=== PATIENT | female | born 1980 | race Two or more races ===

== ENCOUNTER 2018-03-06 16:23 | Inpatient (IN) | payer MEDICAID ==
[~2018-03-06] VITALS: Ht 152.4 cm; Wt 72.6 kg
[2018-03-06 17:13] VITALS: BP 116/61
[2018-03-06] MEDS ORDERED: Lidocaine 2% Visc 15ml soln ORAL ONE (17:30)
--- NOTE | 2018-03-06 17:36 | Emergency Room Report ---
History of Present Illness General Chief Complaint: Female Urogenital Problems Source: Patient Present Illness HPI 37-year-old female patient presents to ER complaining of vaginal bleeding 3 weeks. Patient reports that she was seen by her primary care doctor who then referred her to [facility]. Patient reports that at exam on with [facility] and provider there said they would not able to perform a pelvic exam due to heavy bleeding. Was instructed to return to clinic next Thursday when credentialing specialist was going to be in the clinic and can perform the exam himself. Patient reports she was placed on iron supplementation tablets at that time. Patient denies pain with urination, hematuria. Patient reports passage of clots. Patient reports that she goes through 8-10 pads per day. Patient reports "some days are worse than others", some days no bleeding at all. Patient reports feeling lightheadedness. Patient denies syncope. Patient denies fever, chest pain, shortness of breath. Patient reports some suprapubic tenderness. Patient also complains of blister in throat. reports blister appeared after chewing ice and swallowing, thinks that caused the injury. Patient denies pain with eating. Patient reports no vomiting, diarrhea, headache, vision loss, tooth pain. . Denies currently, Reports no recent sexual activity for the past few months. Reports use of contraceptives due to bleeding. Allergies: Coded Allergies: No Known Allergies (Unverified , 03/06/18) Patient History Past Medical History: see triage record Reviewed Nursing Documentation: PMH: Agreed; PSxH: Agreed Nursing Documentation-PMH Past Medical History: No Stated History Review of Systems All Other Systems: negative except mentioned in HPI Physical Exam Vital Signs Date Time Temp Pulse Resp B/P (MAP) Pulse Ox O2 Delivery O2 Flow Rate FiO2 03/06/18 16:43 98.2 76 12 112/63 100 Room Air 98.2 Sp02 EP Interpretation: reviewed, normal General Appearance: well appearing, no apparent distress, alert, GCS 15, non- toxic Head: normocephalic, atraumatic ENT: hearing grossly normal, normal pharynx, no angioedema, normal voice, TMs + canals normal, uvula midline, moist mucus membranes, other - tight tonsil: white exudate, no erythema, no uvular deviation, no trismus, no drooling Neck: full range of motion Respiratory: lungs clear, normal breath sounds, no rhonchi, no respiratory distress, no accessory muscle use, no wheezing, speaking full sentences Gastrointestinal: non tender, soft, no mass, non-distended, no guarding, no rebound Genitourinary: no CVA tenderness Musculoskeletal: back normal, digits/nails normal, gait/station normal, normal range of motion, non-tender Neurologic: alert, oriented x3, responsive, motor strength/tone normal, sensory intact Psychiatric: mood/affect normal Skin: no rash Lymphatic: no adenopathy Medical Decision Making PA Attestation Dr. Bates is my supervising Physician whom patient management has been discussed with. Diagnostic Impression: Primary Impression: Abnormal uterine bleeding Additional Impressions: Urinary tract infection Anemia ER Course Pt presents to ED c/o vaginal bleeding. DDX considered but are not limited to , ectopic, UTI, septic . DDX considered but are not limited to pharyngitis, laryngitis, URI, peritonsillar abscess, tonsillitis Low suspicion for peritonsillar abscess, no neck stiffness, no hot potato voice , no stridor. Moist mucous membranes, no pallor. VITAL SIGNS are WNL, patient is afebrile Ordered CBC, CMP, Type and Screen, UA, UCG, bHCG, IV NS, PT, PTT and pelvic US. ER COURSE: Patient resting comfortably, in no acute distress, nontoxic appearing. Patient reports pain symptoms resolved since onset. Provided with viscous lidocaine. CBC HgB 7.6, microcytic anemia, will admit patient, will order packed RBCs for blood transfusion. Informed patient of possible consultations. Signed consent received from patient for procedure. CMP unremarkable UA results show 3+ leukocyte esterase, WBC's, will treat for UTI with abx, provide first dose of Keflex in ER. Urine negative. BetaHCG 1, unlikely. Blood type A positive. PT, PTT, INR WNL Results discussed with patient. Consult with Dr. Bates, agrees with treatment and plan. Pelvic US, per US tech, shows Nabothian cyst and pelvic cyst, no free fluid. Informed patient to followup at scheduled appointment. F/u at scheduled appointment. patient reports understanding and agreement. For lesion on throat, informed patient bacterial infection unlikely, possible viral cause of symptoms. Will provide viscous lidocaine for pain symptoms. Salt water gargles for resolution of symptoms. Informed patient to take Tylenol only for pain symptoms, do not take Motrin/ Ibuprofen. Followup with primary care provider. Informed patient symptoms of lightheadedness related to anemia. Informed patient that she would be admitted for further treatment and evaluation. Consult with Dr. Bates. Patient will be admitted to Dr. Noe. Patient being admitted for vaginal bleeding, anemia. Labs Test 03/06/18 17:20 03/06/18 17:30 White Blood Count 14.3 K/UL (4.8-10.8) Red Blood Count 2.97 M/UL (4.20-5.40) Hemoglobin 7.6 G/DL (12.0-16.0) Hematocrit 23.5 % (37.0-47.0) Mean Corpuscular Volume 79 FL (80-99) Mean Corpuscular Hemoglobin 25.5 PG (27.0-31.0) Mean Corpuscular Hemoglobin Concent 32.3 G/DL (32.0-36.0) Red Cell Distribution Width 13.4 % (11.6-14.8) Platelet Count 350 K/UL (150-450) Mean Platelet Volume 6.7 FL (6.5-10.1) Neutrophils (%) (Auto) % (45.0-75.0) Lymphocytes (%) (Auto) % (20.0-45.0) Monocytes (%) (Auto) % (1.0-10.0) Eosinophils (%) (Auto) % (0.0-3.0) Basophils (%) (Auto) % (0.0-2.0) Differential Total Cells Counted 100 Neutrophils % (Manual) 78 % (45-75) Lymphocytes % (Manual) 19 % (20-45) Monocytes % (Manual) 3 % (1-10) Eosinophils % (Manual) 0 % (0-3) Basophils % (Manual) 0 % (0-2) Band Neutrophils 0 % (0-8) Platelet Estimate Adequate Platelet Morphology Normal Hypochromasia Occasional Microcytosis 1+ Urine Color Pale yellow Urine Appearance Cloudy Urine pH 6 (4.5-8.0) Urine Specific [place] 1.010 (1.005-1.035) Urine Protein 2+ (NEGATIVE) Urine Glucose (UA) Negative (NEGATIVE) Urine Ketones Negative (NEGATIVE) Urine Occult Blood 5+ (NEGATIVE) Urine Nitrite Negative (NEGATIVE) Urine Bilirubin Negative (NEGATIVE) Urine Urobilinogen Normal MG/DL (0.0-1.0) Urine Leukocyte Esterase 3+ (NEGATIVE) Urine RBC Tntc /HPF (0 - 2) Urine WBC 15-20 /HPF (0 - 2) Urine Squamous Epithelial Cells Moderate /LPF (NONE/OCC) Urine Bacteria Moderate /HPF (NONE) Urine HCG, Qualitative Negative (NEGATIVE) Sodium Level 136 MMOL/L (136-145) Potassium Level 3.6 MMOL/L (3.5-5.1) Chloride Level 101 MMOL/L (98-107) Carbon Dioxide Level 27 MMOL/L (21-32) Anion Gap 8 mmol/L (5-15) Blood Urea Nitrogen 12 mg/dL (7-18) Creatinine 0.8 MG/DL (0.55-1.30) Estimat Glomerular Filtration Rate > 60 mL/min (>60) Glucose Level 128 MG/DL (74-106) Calcium Level 8.8 MG/DL (8.5-10.1) Total Bilirubin 0.2 MG/DL (0.2-1.0) Aspartate Amino Transf (AST/SGOT) 24 U/L (15-37) Alanine Aminotransferase (ALT/SGPT) 37 U/L (12-78) Alkaline Phosphatase 79 U/L (46-116) Total Protein 7.5 G/DL (6.4-8.2) Albumin 3.5 G/DL (3.4-5.0) Globulin 4.0 g/dL Albumin/Globulin Ratio 0.9 (1.0-2.7) Lipase 162 U/L (73-393) Human Chorionic Gonadotropin, Quant 1 mIU/mL (1-6) Prothrombin Time 9.3 SEC (9.30-11.50) Prothromb Time International Ratio 0.9 (0.9-1.1) Activated Partial Thromboplast Time 22 SEC (23-33) CT/MRI/US Diagnostic Results CT/MRI/US Diagnostic Results : Imaging Test Ordered: Pelvic US Impression [facility] No findings to suggest ovarian torsion. Uterus and endometrium are unremarkable. No adnexal masses or pelvic free fluid. Last Vital Signs Date Time Temp Pulse Resp B/P (MAP) Pulse Ox O2 Delivery O2 Flow Rate FiO2 03/06/18 17:13 98.1 75 12 116/61 100 Room Air 98.1 Disposition: ADMITTED INPATIENT Condition: Serious Referrals: [facility] ([facility]) Patient Instructions: Abnormal Uterine Bleeding, [id number] Additional Instructions: Followup with primary care provider in 3 -5 days. Take medications as directed. Patient questions asked and answered. ER precautions given, patient instructed to return to ER immediately for any new or worsening of symptoms. Artis Franks Mar 06, 2018 17:36
[2018-03-06 17:54] LABS: APPEARANCE,URINE CLOUDY; BILIRUBIN, URINE NEGATIVE (NEGATIVE); COLOR,URINE PALE YELLOW; GLUCOSE, URINE (UA) NEGATIVE (NEGATIVE); KETONES,URINE NEGATIVE (NEGATIVE); LEUKOCYTE ESTERASE ,URINE 3+ (NEGATIVE); NITRITE,URINE NEGATIVE (NEGATIVE); PH,URINE 6 (4.5-8.0); PROTEIN,URINE 2+ (NEGATIVE); UROBILINOGEN,URINE NORMAL MG/DL (0.0-1.0)
[2018-03-06 18:00] LABS: HEMATOCRIT 23.5 % (37.0-47.0); HEMOGLOBIN 7.6 G/DL (12.0-16.0); MEAN CORPUSCULAR VOLUME 79 FL (80-99); PLATELET COUNT 350 K/UL (150-450); RED BLOOD COUNT 2.97 M/UL (4.20-5.40); RED CELL DISTRIBUTION WIDTH 13.4 % (11.6-14.8); WHITE BLOOD COUNT 14.3 K/UL (4.8-10.8)
[2018-03-06 18:09] LABS: ANION GAP 8 mmol/L (5-15); BLOOD UREA NITROGEN 12 mg/dL (7-18); CALCIUM 8.8 MG/DL (8.5-10.1); CARBON DIOXIDE 27 MMOL/L (21-32); CHLORIDE 101 MMOL/L (98-107); CREATININE 0.8 MG/DL (0.55-1.30); POTASSIUM 3.6 MMOL/L (3.5-5.1); SODIUM 136 MMOL/L (136-145)
[2018-03-06 18:14] LABS: ALANINE AMINOTRANSFERASE 37 U/L (12-78); ALBUMIN 3.5 G/DL (3.4-5.0); ALBUMIN/GLOBULIN RATIO 0.9 (1.0-2.7); ALKALINE PHOSPHATASE 79 U/L (46-116); ASPARTATE AMINO TRANSFERASE 24 U/L (15-37); BILIRUBIN,TOTAL 0.2 MG/DL (0.2-1.0)
[2018-03-06 18:32] LABS: INR 0.9 (0.9-1.1)
[2018-03-06] MEDS ORDERED: MULTIVITAMINS1 EAC2 ORAL (19:05)
[2018-03-06] MEDS ORDERED: Cephalexin 500mg cap ORAL ONE (19:45)
[2018-03-06] MEDS ORDERED: Morphine Sulfate 4mg/ml Inj IVP PRN ×2 (22:15→22:30)
[2018-03-06] MEDS ORDERED: Zolpidem 5mg tab ORAL PRN (22:15)
[2018-03-06] MEDS ORDERED: Milk of Magnesia 30ml Ud ORAL PRN (22:15)
[2018-03-07] VITALS: BP 118/66
[2018-03-07 04:00] VITALS: BP 111/52
[2018-03-07 08:00] VITALS: BP 110/62
[2018-03-07] MEDS ORDERED: Tubing Blood Filter IV ONE (09:41)
[2018-03-07] MEDS ORDERED: NS 275ml ONE (09:41)
[2018-03-07 11:46] LABS: BASOPHILS % (AUTO) 0.8 % (0.0-2.0); EOSINOPHILS % (AUTO) 0.5 % (0.0-3.0); HEMATOCRIT 28.7 % (37.0-47.0); HEMOGLOBIN 9.7 G/DL (12.0-16.0); LYMPHOCYTES % (AUTO) 24.7 % (20.0-45.0); MEAN CORPUSCULAR VOLUME 83 FL (80-99); MONOCYTES % (AUTO) 7.1 % (1.0-10.0); NEUTROPHILS % (AUTO) 66.9 % (45.0-75.0); PLATELET COUNT 302 K/UL (150-450); RED BLOOD COUNT 3.45 M/UL (4.20-5.40); RED CELL DISTRIBUTION WIDTH 14.3 % (11.6-14.8); WHITE BLOOD COUNT 12.5 K/UL (4.8-10.8)
[2018-03-07 12:00] VITALS: BP 123/81
--- NOTE | 2018-03-07 12:22 | History & Physical ---
History and Physical History & Physicial Hp dictated # [id number] KAREY URIOSTEGUI Mar 07, 2018 12:22
[2018-03-07 12:34] LABS: INR 0.9 (0.9-1.1)
[2018-03-07 16:00] VITALS: BP 119/72
[2018-03-07 20:15] VITALS: BP 117/75
--- NOTE | 2018-03-07 23:09 | History and Physical Report ---
DATE OF ADMISSION: 03/06/2018 CHIEF COMPLAINT: Heavy vaginal bleeding and dizziness. HISTORY OF PRESENT ILLNESS: This is a 37-year-old female who developed heavy vaginal bleeding for the past three weeks. The patient saw her primary doctor, was referred to an [facility] L[facility] COMPRESSOR, however, there was warehouse administrative assistant in the office who could not perform a pelvic exam because of heavy bleeding. She was instructed to return to clinic the next Thursday when cross country/track and field coach was in the clinic, so he could perform exam himself. The patient was started on oral iron tablets but for the past 5 days she has been very dizzy, unable to take care of her daily activities, bleeding constantly, and being very weak so she finally came to the emergency room. She was found to have hemoglobin of 7.6 with hematocrit 23.5. In the emergency room, she got two units of packed red blood cells and the hemoglobin improved to 9.7 with hematocrit 28.7. She feels better now and she said that her bleeding has subsided. PAST MEDICAL HISTORY: She has had irregular vaginal bleeding before but not this heavy. SOCIAL HISTORY: She is , has 2 children and lives with the family. ALLERGIES: No known drug allergies. REVIEW OF SYSTEMS: As above. PHYSICAL EXAMINATION: GENERAL: The patient is a pleasant female, in no acute distress. VITAL SIGNS: Blood pressure is 110/62, pulse 94, temperature 98.3 degrees, and respirations 21. HEENT: Pale conjunctivae. Anicteric sclerae. NECK: Supple. LUNGS: Clear to auscultation. HEART: S1 and S2 without murmurs or rubs. ABDOMEN: Soft and nontender. EXTREMITIES: No cyanosis or edema. LABORATORY AND DIAGNOSTIC DATA: UA shows too numerous to count rbc's and 15-20 wbc's per high-power field. CBC shows a WBC of 12.5, hematocrit 28.7, hemoglobin 9.7, and platelets 302,000. Chemistry panel shows serum sodium 136, potassium 3.6, chloride 101, CO2 27, BUN 12, creatinine 0.8, and blood sugar is 128. Calcium is 8.8. Albumin is 3.8. ASSESSMENT: This is a 37-year-old female who was admitted with heavy vaginal bleeding, severe anemia causing significant volume depletion and dizziness. PLAN: The patient will be on IV normal saline. Her hematocrit and hemoglobin will be followed closely. Further transfusions will be given if necessary. The patient will be seen by [facility] L[facility] COMPRESS[facility] physician, Dr. Aiden Vázquez in the morning. Antoni Noe M.D. DR: ELISA JOB#: [id number] CC:
[2018-03-08 00:29] VITALS: BP 120/74
[2018-03-08 04:50] VITALS: BP 108/66
[2018-03-08 09:00] VITALS: BP 112/72
--- NOTE | 2018-03-08 10:18 | Diagnostic Imaging Report ---
Indication: Pain. Negative test documented in the electronic medical record on day of exam. Technique: Transabdominal and endovaginal pelvic ultrasound was performed. Findings: The uterus measures 10.1 x 5.2 x 5.1 cm. The endometrium measures approximately 9 mm in thickness. There are well-circumscribed anechoic nonvascular structures in the cervix most likely representing nabothian cysts. The right liver measures 4 x 4 0.2 x 2.5 cm. The left ovary measures 2.2 x 2.3 x 1.8 cm. Color and Doppler flow to bilateral ovaries is documented. Appreciable adnexal mass. No free pelvic fluid identified. IMPRESSION: No evidence to suggest ovarian torsion at this time. Color and Doppler flow noted to the bilateral ovaries. Probable nabothian cysts in the cervix. Uterus and endometrium are unremarkable. No appreciable adnexal mass or free pelvic fluid. This corresponds with the [facility] preliminary report.
--- NOTE | 2018-03-08 10:19 | General Progress Note ---
Assessment/Plan Problem List: (1) Anemia ICD Codes: D64.9 - Anemia, unspecified SNOMED: 601959129 (2) Abnormal uterine bleeding ICD Codes: N93.9 - Abnormal uterine and vaginal bleeding, unspecified SNOMED: 94926329006799, [id number] Assessment/Plan follow H/H Grades 9 Thru 12 Visiting Teacher consult repeat UA Subjective Allergies: Coded Allergies: No Known Allergies (Unverified , 03/06/18) Subjective feels ok no more bleed Objective Last 24 Hour Vital Signs Date Time Temp Pulse Resp B/P (MAP) Pulse Ox O2 Delivery O2 Flow Rate FiO2 03/08/18 09:00 98.8 77 18 112/72 98 Room Air 98.8 03/08/18 05:08 Room Air 03/08/18 04:50 98.5 75 18 108/66 98 98.5 03/08/18 00:52 Room Air 03/08/18 00:29 98.5 90 17 120/74 98 98.5 03/07/18 20:16 Room Air 03/07/18 20:15 98.7 94 17 117/75 99 98.7 03/07/18 16:00 98.2 83 18 119/72 99 Room Air 98.2 03/07/18 12:00 98.5 97 19 123/81 97 Room Air 98.5 Intake and Output 03/07/18 03/08/18 19:00 07:00 Intake Total 1400 ml 1460 ml Balance 1400 ml 1460 ml Intake Oral 500 ml 360 ml IV Total 900 ml 1100 ml # Voids 2 3 Laboratory Tests 03/07/18 10:50: White Blood Count 12.5H, Red Blood Count 3.45L, Hemoglobin 9.7L, Hematocrit 28.7L, Mean Corpuscular Volume 83, Mean Corpuscular Hemoglobin 28.2, Mean Corpuscular Hemoglobin Concent 34.0, Red Cell Distribution Width 14.3, Platelet Count 302, Mean Platelet Volume 7.2, Neutrophils (%) (Auto) 66.9, Lymphocytes (% ) (Auto) 24.7, Monocytes (%) (Auto) 7.1, Eosinophils (%) (Auto) 0.5, Basophils ( %) (Auto) 0.8 03/07/18 11:55: Prothrombin Time 9.4, Prothromb Time International Ratio 0.9, Activated Partial Thromboplast Time 23 Height (Feet): 5 Height (Inches): 0.00 Weight (Pounds): 160 Cardiovascular: normal rate Respiratory/Chest: lungs clear Edema: no edema noted KAREY Carlos Mar 08, 2018 10:19
[2018-03-08 12:00] VITALS: BP 110/68
[2018-03-08 13:06] LABS: BASOPHILS % (AUTO) 0.7 % (0.0-2.0); HEMATOCRIT 31.2 % (37.0-47.0); HEMOGLOBIN 10.6 G/DL (12.0-16.0); LYMPHOCYTES % (AUTO) 23.9 % (20.0-45.0); MEAN CORPUSCULAR VOLUME 83 FL (80-99); MONOCYTES % (AUTO) 6.4 % (1.0-10.0); NEUTROPHILS % (AUTO) 68.1 % (45.0-75.0); PLATELET COUNT 336 K/UL (150-450); RED BLOOD COUNT 3.73 M/UL (4.20-5.40); RED CELL DISTRIBUTION WIDTH 14.6 % (11.6-14.8); WHITE BLOOD COUNT 10.9 K/UL (4.8-10.8)
[2018-03-08 13:25] LABS: APPEARANCE,URINE CLEAR; BILIRUBIN, URINE NEGATIVE (NEGATIVE); COLOR,URINE PALE YELLOW; GLUCOSE, URINE (UA) NEGATIVE (NEGATIVE); KETONES,URINE NEGATIVE (NEGATIVE); LEUKOCYTE ESTERASE ,URINE 3+ (NEGATIVE); NITRITE,URINE NEGATIVE (NEGATIVE); PH,URINE 7 (4.5-8.0); PROTEIN,URINE 1+ (NEGATIVE); UROBILINOGEN,URINE NORMAL MG/DL (0.0-1.0)
--- NOTE | 2018-03-08 14:06 | Consultation ---
Consult Note Consult Note GYNECOLOGY CONSULT NOTE CC: Heavy vaginal bleeding HPI: Ms. Pitts is a 37yo who was admitted with anemia secondary to heavy vaginal bleeding. Patient reports that bleeding began approximately 3w ago , started as a period. Bleeding stopped after 1w, but a couple of days later bleeding recurred initially as spotting, and then as heavy flow with large amounts of watery blood and clots. She was soaking multiple pads at a time. She followed up with her PCP, who started iron treatment but then referred her to Gynecology who "wouldn't do an exam because she was bleeding". She presented to the ED with lightheadedness, dizziness, shortness of breath, and found to have H /H 7.62/3.5. She was given 2u pRBCs and a COMMUNICATIONS STATION MANAGER consult was requested. She currently reports only bleeding with wiping, and is no longer bleeding heavily. She has an appointment to f/u with [facility] this coming Thursday. PMH: Denies hx of HTN, DM, asthma, or thyroid dz PSH: section in 2009 MEDS: Iron, Women's daily vitamin ALLERGIES: NKDA OBHx: - 1999, C/S 2009 GYNHx: Last Pap 2y ago, no hx abnormal. 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 Maternal grandfather from Stage 4 CA of unknown origin (unknown to patient) VITALS: Tmax: 98.5, SBP 108-120 DBP 66-74, HR 75-96, RR 17-20, O2 98-99% RA EXAM: GEN: NAD NEURO: CN 2-12 intact grossly HEENT: OP clear, MMM CV: Regular rate PULM: Equal chest rise, no increased work of breathing ABD: Soft, NTND PELVIC: Deferred, pad without evidence of heavy bleeding EXT: No calf TTP MSK: FROM LABS: Test 03/06/18 17:20 03/06/18 17:30 03/07/18 10:50 03/07/18 11:55 White Blood Count 14.3 K/UL (4.8-10.8) 12.5 K/UL (4.8-10.8) Red Blood Count 2.97 M/UL (4.20-5.40) 3.45 M/UL (4.20-5.40) Hemoglobin 7.6 G/DL (12.0-16.0) 9.7 G/DL (12.0-16.0) Hematocrit 23.5 % (37.0-47.0) 28.7 % (37.0-47.0) Mean Corpuscular Volume 79 FL (80-99) 83 FL (80-99) Mean Corpuscular Hemoglobin 25.5 PG (27.0-31.0) 28.2 PG (27.0-31.0) Mean Corpuscular Hemoglobin Concent 32.3 G/DL (32.0-36.0) 34.0 G/DL (32.0-36.0) Red Cell Distribution Width 13.4 % (11.6-14.8) 14.3 % (11.6-14.8) Platelet Count 350 K/UL (150-450) 302 K/UL (150-450) Mean Platelet Volume 6.7 FL (6.5-10.1) 7.2 FL (6.5-10.1) Neutrophils (%) (Auto) % (45.0-75.0) 66.9 % (45.0-75.0) Lymphocytes (%) (Auto) % (20.0-45.0) 24.7 % (20.0-45.0) Monocytes (%) (Auto) % (1.0-10.0) 7.1 % (1.0-10.0) Eosinophils (%) (Auto) % (0.0-3.0) 0.5 % (0.0-3.0) Basophils (%) (Auto) % (0.0-2.0) 0.8 % (0.0-2.0) Differential Total Cells Counted 100 Neutrophils % (Manual) 78 % (45-75) Lymphocytes % (Manual) 19 % (20-45) Monocytes % (Manual) 3 % (1-10) Eosinophils % (Manual) 0 % (0-3) Basophils % (Manual) 0 % (0-2) Band Neutrophils 0 % (0-8) Platelet Estimate Adequate Platelet Morphology Normal Hypochromasia Occasional Microcytosis 1+ Urine Color Pale yellow Urine Appearance Cloudy Urine pH 6 (4.5-8.0) Urine Specific [place] 1.010 (1.005-1.035) Urine Protein 2+ (NEGATIVE) Urine Glucose (UA) Negative (NEGATIVE) Urine Ketones Negative (NEGATIVE) Urine Occult Blood 5+ (NEGATIVE) Urine Nitrite Negative (NEGATIVE) Urine Bilirubin Negative (NEGATIVE) Urine Urobilinogen Normal MG/DL (0.0-1.0) Urine Leukocyte Esterase 3+ (NEGATIVE) Urine RBC Tntc /HPF (0 - 2) Urine WBC 15-20 /HPF (0 - 2) Urine Squamous Epithelial Cells Moderate /LPF (NONE/OCC) Urine Bacteria Moderate /HPF (NONE) Urine HCG, Qualitative Negative (NEGATIVE) Sodium Level 136 MMOL/L (136-145) Potassium Level 3.6 MMOL/L (3.5-5.1) Chloride Level 101 MMOL/L (98-107) Carbon Dioxide Level 27 MMOL/L (21-32) Anion Gap 8 mmol/L (5-15) Blood Urea Nitrogen 12 mg/dL (7-18) Creatinine 0.8 MG/DL (0.55-1.30) Estimat Glomerular Filtration Rate > 60 mL/min (>60) Glucose Level 128 MG/DL (74-106) Calcium Level 8.8 MG/DL (8.5-10.1) Total Bilirubin 0.2 MG/DL (0.2-1.0) Aspartate Amino Transf (AST/SGOT) 24 U/L (15-37) Alanine Aminotransferase (ALT/SGPT) 37 U/L (12-78) Alkaline Phosphatase 79 U/L (46-116) Total Protein 7.5 G/DL (6.4-8.2) Albumin 3.5 G/DL (3.4-5.0) Globulin 4.0 g/dL Albumin/Globulin Ratio 0.9 (1.0-2.7) Lipase 162 U/L (73-393) Human Chorionic Gonadotropin, Quant 1 mIU/mL (1-6) Prothrombin Time 9.3 SEC (9.30-11.50) 9.4 SEC (9.30-11.50) Prothromb Time International Ratio 0.9 (0.9-1.1) 0.9 (0.9-1.1) Activated Partial Thromboplast Time 22 SEC (23-33) 23 SEC (23-33) Test 03/08/18 11:15 03/08/18 12:25 Urine Color Pale yellow Urine Appearance Clear Urine pH 7 (4.5-8.0) Urine Specific [place] 1.010 (1.005-1.035) Urine Protein 1+ (NEGATIVE) Urine Glucose (UA) Negative (NEGATIVE) Urine Ketones Negative (NEGATIVE) Urine Occult Blood 3+ (NEGATIVE) Urine Nitrite Negative (NEGATIVE) Urine Bilirubin Negative (NEGATIVE) Urine Urobilinogen Normal MG/DL (0.0-1.0) Urine Leukocyte Esterase 3+ (NEGATIVE) Urine RBC 2-4 /HPF (0 - 2) Urine WBC 15-20 /HPF (0 - 2) Urine Squamous Epithelial Cells Few /LPF (NONE/OCC) Urine Bacteria Occasional /HPF (NONE) White Blood Count 10.9 K/UL (4.8-10.8) Red Blood Count 3.73 M/UL (4.20-5.40) Hemoglobin 10.6 G/DL (12.0-16.0) Hematocrit 31.2 % (37.0-47.0) Mean Corpuscular Volume 83 FL (80-99) Mean Corpuscular Hemoglobin 28.3 PG (27.0-31.0) Mean Corpuscular Hemoglobin Concent 33.9 G/DL (32.0-36.0) Red Cell Distribution Width 14.6 % (11.6-14.8) Platelet Count 336 K/UL (150-450) Mean Platelet Volume 7.2 FL (6.5-10.1) Neutrophils (%) (Auto) 68.1 % (45.0-75.0) Lymphocytes (%) (Auto) 23.9 % (20.0-45.0) Monocytes (%) (Auto) 6.4 % (1.0-10.0) Eosinophils (%) (Auto) 1.0 % (0.0-3.0) Basophils (%) (Auto) 0.7 % (0.0-2.0) IMAGING: Pelvic US 03/08/18 IMPRESSION: No evidence to suggest ovarian torsion at this time. Color and Doppler flow noted to the bilateral ovaries. Probable nabothian cysts in the cervix. Uterus and endometrium are unremarkable. No appreciable adnexal mass or free pelvic fluid. . Assessment/Plan ASSESSMENT & PLAN: 37yo admitted with anemia 2/2 AUB, unclear etiology. Ultrasound unremarkable, no evidence of fibroid or polyp. Nabothian cysts a normal variant , and would not result in heavy menses. - Patient is s/p 2u pRBC transfusion with rise in H/H to 10.6/31.2 at last draw , recommend continuing iron supplementation - No longer with si/sx of hemodynamic instability - Discussed causes of AUB, and that given the absence of structural pathology would recommend repeat US, saline US, and/or endometrial sampling with biopsy. - Patient has follow up with COMMUNICATIONS STATION MANAGER at [facility] [place] this coming Thursday, urged patient NOT to miss this appointment - Recommend hormone workup (including thyroid studies) as well as endometrial sampling with or without additional imaging (US vs saline US) - Given her lack of bleeding now, medical treatment with progestin not indicated - Discussed that progestin treatment would stop any current bleeding, but that bleeding would again recur once it was stopped (withdrawal bleed) - Discussed medical treatment options for heavy bleeding, once a cause has been established - treatment could include OCPs or Mirena IUD - Patient will follow up with COMMUNICATIONS STATION MANAGER as instructed Thank you for this interesting consult. Jil Gonzalez M.D. Mar 08, 2018 14:06
[2018-03-08 16:00] VITALS: BP 128/74
[2018-03-08] MEDS ORDERED: FERROUS SULFAT325 MG ORAL (16:19)
--- NOTE | 2018-03-09 13:52 | Discharge Summary ---
Discharge Summary Discharge Summary Discharge Summary DATE OF ADMISSION: 03/06/2018 DATE OF DISCHARGE: 03/08/2018 REASON FOR ADMISSION: 37 years old female 2 para 2 presented to emergency department with heavy vaginal bleeding lasted for 3 weeks. Initially started as a period, then stopped after one week , but a couple of days later bleeding resumed, first as spotting and then started heavy flow with large amounts of watery blood and clots . Patient was using 8-10 pads a day. Patient was followed up with her primary care provider and was started on iron treatment and t was referred to global engineering manager. She presented to emergency department with lightheadedness, dizziness, shortness of breath and found to have hemoglobin 7.6 and hematocrit 23.5 . Transvaginal pelvis ultrasound revealed no evidence to suggest ovarian torsion. Doppler flow noted to bilateral ovaries. No appreciable adnexal masses or free pelvic fluid noted. Probably nabothian cyst in the cervix. Uterus and endometrium were unremarkable Patient was admitted for further management with diagnosis of abnormal uterine bleeding, severe anemia resulting in volume depletion and dizziness. CONSULTANTS: OBSTETRICIAN specialist HOSPITAL COURSE: Patient admitted to medical surgical floor. Patient started on the IV hydration. Hemoglobin and hematocrit were closely monitored. Patient undergone transfusion of 2 units of packed red blood cell. OBSTETRICIAN consult was requested On the next day, when OBSTETRICIAN specialist seen the patient, patient was no longer bleeding heavily, bleeding noted only with wiping. Patient had appointment with OBSTETRICIAN scheduled for this coming Thursday. Per OBSTETRICIAN specialist, patient had abnormal uterine bleeding of unclear etiology. Ultrasound was unremarkable , no evidence of fibroids or polyps. Nabothian cysts is a normal variant and will not result in heavy bleeding. Patient undergone transfusion of 2 units of packed red blood cell with a rise in hemoglobin and hematocrit to 10.6 and 31.2 respectively. Patient was on iron supplement, which recommended to be continued as outpatient. No dizziness or lightheadedness. Given absence of structural pathology, FOLLOW UP MANAGER specialist recommended to repeat ultrasound with or without saline and endometrial sampling with a biopsy. Patient was urged not to miss the appointment with the OBSTETRICIAN this coming Thursday. Recommended hormonal workup , including thyroid studies. Given lack of bleeding currently, medical treatments with progestin was not indicated. Medical treatment options for heavy bleeding were discussed with the patient ( once the cause will be established ) , including oral contraceptive or Mirena intrauterine device. Patient instructed to follow up with OBSTETRICIAN as outpatient. Patient clinically improved, no further signs of hemodynamic instability , hemoglobin and hematocrit improved. Patient was stable for discharge home FINAL DIAGNOSES: Abnormal uterine bleeding Severe anemia , resulting in hemodynamic instability ( lightheadedness, dizziness, shortness of breath)-resolved DISCHARGE MEDICATIONS: See Medication Reconciliation list. DISCHARGE INSTRUCTIONS: Patient was discharged home . Follow-up with OBSTETRICIAN as scheduled as outpatient this coming I have been assigned to dictate discharge summary for this account. I was not involved in the patient's management. Hussein (Carlos EduardoJacklyn duncan NP March 09, 2018 13:52
== END 2018-03-08 16:45 | disposition home or self-care (01) | DRG 532 ==
LOC: EMR 17:13 → EDBEDREQ 18:20 → 4E 19:10 → EDBEDREQ 20:16 → 3E 03-07 12:10
PROC: 30233N1 Transfusion of Nonautologous Red Blood Cells into Peripheral Vein, Percutaneous Approach (ICD-10-PCS; principal; 2018-03-07)
DX: N93.9 Abnormal uterine and vaginal bleeding, unspecified (principal); D50.0 Iron deficiency anemia secondary to blood loss (chronic)
CPT/HCPCS: 36415; 76830; 76856; 80053; 81001; 81003; 81025; 83690; 84702; 85007; 85025; 85610; 85730; 86850; 86900; 86901; 86920; 87086; 99285

== ENCOUNTER 2018-11-15 21:42 | Emergency (ER) | payer MEDICAID ==
[~2018-11-15] VITALS: Ht 154.9 cm; Wt 65.8 kg
[~2018-11-15 21:42] MED LIST: FERROUS SULFAT325 MG ORAL; MULTIVITAMINS1 EAC2 ORAL
[2018-11-15] MEDS ORDERED: NKM (21:52)
[2018-11-15 22:13] VITALS: BP 134/83
--- NOTE | 2018-11-15 22:13 | NUR ---
ER Nurse Note: Patient TENA RA 34 from home c/o tonic clonic witnessed seizure. Pt stated it lasting about two minutes. Pt stated she felt a headache, could not talk prior seizure. No head trauma, pt bite tongue bilaterally during seizure; denies pain. BS 134 on scene. Patient is AOx3 upon arrival. VSS, no signs of distress. Pupils reactive, able to move all extremites, cap refill less than 3 secs. ERMD at pt side, will continue to montior.
[2018-11-15] MEDS ORDERED: levETIRAcetam 500mg/NS100ml 100 ML IVPB ONE (22:15)
--- NOTE | 2018-11-15 22:26 | Emergency Room Report ---
History of Present Illness General Chief Complaint: Seizure Source: Patient Present Illness HPI Is a 37-year-old female with a history of cervical cancer status post hysterectomy. She presents with chief complaint of seizure. Witnessed by . Lasted about one to 2 minutes. She stiffen up and was slight shaking. Her eyes rolled back her head. She became unresponsive. She has or trauma. No incontinence of bowel or urine. This is a first-time. No other complaint. Now with nausea and headache. Allergies: Coded Allergies: No Known Allergies (Unverified , 03/06/18) Patient History Past Medical History: see triage record, old chart reviewed Past Surgical History: other - Hysterectomy Pertinent Family History: none Social History: Denies: smoking Last Menstrual Period: UNK Now: No Immunizations: other Reviewed Nursing Documentation: PMH: Agreed; PSxH: Agreed Nursing Documentation-PMH Past Medical History: No History, Except For Hx Cancer: Yes - cervical Review of Systems Eye: Denies: eye pain, blurred vision ENT: Denies: ear pain, nose congestion, throat swelling Respiratory: Denies: cough, shortness of breath Cardiovascular: Denies: chest pain, palpitations Gastrointestinal: Denies: abdominal pain, diarrhea, nausea, vomiting Musculoskeletal: Denies: back pain, joint pain Skin: Denies: rash Neurological: Denies: headache, numbness Endocrine: Denies: increased thirst, increased urine Hematologic/Lymphatic: Denies: easy bruising All Other Systems: negative except mentioned in HPI Physical Exam Vital Signs Date Time Temp Pulse Resp B/P (MAP) Pulse Ox O2 Delivery O2 Flow Rate FiO2 11/15/18 21:48 98.4 130 18 134/83 98 Room Air vitals with tachycardia Sp02 EP Interpretation: reviewed, normal General Appearance: well appearing, no apparent distress, alert Head: normocephalic, atraumatic Eyes: bilateral eye PERRL, bilateral eye EOMI ENT: hearing grossly normal, normal pharynx, other - Tongue abrasion on left Neck: full range of motion, supple, no meningismus Respiratory: chest non-tender, lungs clear, normal breath sounds Cardiovascular #1: regular rate, rhythm, no murmur Gastrointestinal: normal bowel sounds, non tender, no mass, no organomegaly, no bruit, non-distended Musculoskeletal: back normal, gait/station normal, normal range of motion Psychiatric: mood/affect normal Skin: warm/dry Procedures Critical Care Time Critical Care Time Critical care is mandated in this patient who presented with a brain tumor causing seizure. She does have vasogenic edema with mild midline shift. Patient require my urgent intervention to attenuate the risks of neurological collapse which may lead to cardiovascular collapse and . Critical care time is 35 minutes excluding any reportable procedure. Critical care time included evaluation, multiple reevaluation, looking at old charts, interpreting laboratory and diagnostic data, discussing case with patient and family and consultants, and charting. Medical Decision Making Diagnostic Impression: Primary Impression: Epileptic seizure, generalized Additional Impressions: Brain mass Vasogenic brain edema ER Course This is a 37-year-old female presents with new onset seizure. Unfortunately this is caused from a brain tumor. She does have some edema and mild midline shift. Decadron and Keppra given here. Patient is neurologically intact. I discussed the case with Dr. Kim at [facility]. She accepted the patient for higher level care transfer. Lab Results Impression labs unremarkable EKG Diagnostic Results Rate: normal Rhythm: NSR ST Segments: no acute changes Rhythm Strip Diag. Results EP Interpretation: yes Rate: 100 Rhythm: NSR, no PVC's, no ectopy CT/MRI/US Diagnostic Results CT/MRI/US Diagnostic Results : Imaging Test Ordered: CT head Impression Read by radiologist. 4.2 cm left frontoparietal mass with vasogenic edema. There is a 4.6 mm rightward midline shift. Last Vital Signs Date Time Temp Pulse Resp B/P (MAP) Pulse Ox O2 Delivery O2 Flow Rate FiO2 11/15/18 22:13 130 18 Room Air 11/15/18 22:13 98.4 134/83 98 Status: improved Disposition: XFER T-TRM HOSP Condition: Stable Natalio Aldana MD Nov 15, 2018 22:26
[2018-11-15 23:16] LABS: APPEARANCE,URINE SLIGHTLY CLOUDY; BILIRUBIN, URINE NEGATIVE (NEGATIVE); COLOR,URINE PALE YELLOW; GLUCOSE, URINE (UA) NEGATIVE (NEGATIVE); KETONES,URINE NEGATIVE (NEGATIVE); LEUKOCYTE ESTERASE ,URINE 3+ (NEGATIVE); NITRITE,URINE NEGATIVE (NEGATIVE); PH,URINE 6 (4.5-8.0); PROTEIN,URINE 3+ (NEGATIVE); UROBILINOGEN,URINE NORMAL MG/DL (0.0-1.0)
[2018-11-15 23:26] LABS: BASOPHILS % (AUTO) 0.6 % (0.0-2.0); EOSINOPHILS % (AUTO) 0.6 % (0.0-3.0); HEMOGLOBIN 11.4 G/DL (12.0-16.0); LYMPHOCYTES % (AUTO) 9.9 % (20.0-45.0); MEAN CORPUSCULAR VOLUME 85 FL (80-99); MONOCYTES % (AUTO) 6.6 % (1.0-10.0); NEUTROPHILS % (AUTO) 82.3 % (45.0-75.0); PLATELET COUNT 289 K/UL (150-450); RED BLOOD COUNT 3.78 M/UL (4.20-5.40); RED CELL DISTRIBUTION WIDTH 11.6 % (11.6-14.8); WHITE BLOOD COUNT 8.8 K/UL (4.8-10.8)
[2018-11-15 23:36] LABS: ANION GAP 7 mmol/L (5-15); BLOOD UREA NITROGEN 14 mg/dL (7-18); CALCIUM 9.4 MG/DL (8.5-10.1); CARBON DIOXIDE 30 MMOL/L (21-32); CHLORIDE 101 MMOL/L (98-107); CREATININE 1.3 MG/DL (0.55-1.30); POTASSIUM 3.3 MMOL/L (3.5-5.1); SODIUM 138 MMOL/L (136-145)
[2018-11-15 23:41] LABS: ALANINE AMINOTRANSFERASE 31 U/L (12-78); ALBUMIN 3.9 G/DL (3.4-5.0); ALKALINE PHOSPHATASE 94 U/L (46-116); ASPARTATE AMINO TRANSFERASE 22 U/L (15-37); BILIRUBIN,TOTAL 0.2 MG/DL (0.2-1.0)
[2018-11-15] MEDS ORDERED: Dexamethasone 4mg/ml vial IVP ONE (23:45)
--- NOTE | 2018-11-16 00:21 | NUR ---
ER Nurse Note: Pt awake, calm, no active seizure during shift, waiting for transport; will give report to RN at [facility].
--- NOTE | 2018-11-16 00:33 | NUR ---
ER Nurse Note: Gave report to NITHYA Scott at . Pt a&ox3, VSS, no signs of distress. Pt left with all belongings.
[2018-11-16 00:37] VITALS: BP 110/68
--- NOTE | 2018-11-16 10:40 | Diagnostic Imaging Report ---
Indication: Seizure Technique: Contiguous 5 mm thick transaxial imaging of the head obtained in a Siemens Sensation [address] scanner. Soft tissue and bone windows generated. Automatic Exposure Control was utilized. Total Dose length Product (DLP): 1319.[address] Dose Index Volume (CTDIvol): 70.38 mGy Comparison: none Findings: There is edema in the left frontal lobe secondary to what appears to be a heterogeneous mass measuring about 2.5-3 cm. Further evaluation with gadolinium MRI is needed. There is no hemorrhage. There is trace midline shift from left to right of about 5 mm. The ventricles appear normal in size. The basal cisterns are normal. Osseous structures appear unremarkable. IMPRESSION: Vasogenic edema in the left frontal lobe secondary to a mass. Further evaluation is recommended with gadolinium-enhanced MRI [facility] has communicated the preliminary results to the Emergency Department. Their findings are largely concordant with this report. Critical value communication. Findings were discussed via telephone with the emergency room physician by Dr. Petr Braswell from [facility]. The CT scanner at [facility] is accredited by the [employer] and the scans are performed using dose optimization techniques as appropriate to a performed exam including Automatic Exposure control.
--- NOTE | 2018-11-16 14:26 | Cardiology Report ---
APPROVED REPORT EKG Measurement Heart [id number] Normal sinus rhythm Normal ECG
== END 2018-11-16 00:33 | disposition short-term general hospital (02) ==
LOC: EDBD 21:42 → EMR 22:01
DX: G40.409 Other generalized epilepsy and epileptic syndromes, not intractable, without status epilepticus (principal); G93.6 Cerebral edema; Z85.41 Personal history of malignant neoplasm of cervix uteri; Z90.710 Acquired absence of both cervix and uterus
CPT/HCPCS: 36415; 70450; 80053; 80307; 81003; 85025; 87086; 93005; 96361; 96365; 96375; 99291; J1100; J1953

== ENCOUNTER 2019-05-14 18:42 | Emergency (ER) | payer MEDICAID ==
[~2019-05-14] VITALS: Ht 152.4 cm; Wt 59.0 kg
[~2019-05-14 18:42] MED LIST changes: +NKM
[2019-05-14 18:46] VITALS: BP 109/70
[2019-05-14 18:54] VITALS: BP 109/70
--- NOTE | 2019-05-14 18:55 | NUR ---
ED Nurse Note: Pt came in from home due to sorethroat and L earache x 1 week, had chemo for throat cancer on Thursday05/10/19. No complaint of pain juan c. HR 116, ERMD aware. AOx4, other VSS. Will cont to monitor.
[2019-05-14] MEDS ORDERED: AMOXICILLIN500 MG ORAL (19:06)
[2019-05-14] MEDS ORDERED: CLARITIN10 MG ORAL (19:06)
--- NOTE | 2019-05-14 21:33 | Emergency Room Report ---
History of Present Illness General Chief Complaint: Sore Throat Source: Patient Present Illness HPI Patient is a 38-year-old female presented after increased sore throat. Patient had gradual onset of symptoms. She reports having additionally bilateral earache. She had prior history of metastatic cervical cancer and is currently on multiple medications. She is currently undergoing chemotherapy. She reports having low white blood counts in the past. She denies any fever. She reports having some generalized pain. She denies any vomiting or diarrhea. Allergies: Coded Allergies: VANCOMYCIN (Verified Allergy, Unknown, Itchiness, 05/14/19) Patient History Now: No Reviewed Nursing Documentation: PMH: Agreed; PSxH: Agreed Nursing Documentation-PM Past Medical History: No History, Except For Hx Cancer: Yes - cervical, throat Review of Systems All Other Systems: negative except mentioned in HPI Physical Exam Vital Signs Date Time Temp Pulse Resp B/P (MAP) Pulse Ox O2 Delivery O2 Flow Rate FiO2 05/14/19 18:46 98.2 116 20 109/70 (83) 96 Room Air General Appearance: well appearing, no apparent distress, alert, GCS 15, non- toxic, Chronically Ill Head: normocephalic, atraumatic ENT: hearing grossly normal, normal voice, pharyngeal erythema, other Neck: full range of motion, supple Respiratory: no respiratory distress, speaking full sentences Musculoskeletal: no calf tenderness Neurologic: normal gait Psychiatric: mood/affect normal Skin: no rash Medical Decision Making Diagnostic Impression: Primary Impression: Cancer of cervix Additional Impression: Pharyngitis ER Course Patient presented for sore throat. Differential diagnosis include was not limited to pharyngitis, abscess, otitis media, mass among others. Patient has a benign exam and does not appear to require any further imaging or laboratory testing at this time. Patient was noted to have complex medical history and was noted to have some lesion to the left tonsillar pillar. Patient stated that she had been having some increased congestion. Given the patient's prior history of metastatic disease patient will be treated with oral antibiotics. She was given prescription for Claritin. She is advised to follow-up with ENT. Last Vital Signs Date Time Temp Pulse Resp B/P (MAP) Pulse Ox O2 Delivery O2 Flow Rate FiO2 05/14/19 18:54 98.2 116 20 109/70 96 Room Air Status: improved Disposition: HOME, SELF-CARE Condition: Stable Scripts Loratadine (CLARITIN) 10 Mg Tablet 10 MG ORAL DAILY, #20 TAB Prov: Roddy Martinez MD 05/14/19 Amoxicillin* (AMOXIL*) 500 Mg Capsule 500 MG ORAL THREE TIMES A DAY, #21 CAP Prov: Roddy Martinez MD 05/14/19 Patient Instructions: Pharyngitis Roddy Martinez MD May 14, 2019 21:32
== END 2019-05-14 19:14 | disposition home or self-care (01) ==
LOC: EMR 18:55
DX: J02.9 Acute pharyngitis, unspecified (principal); C53.9 Malignant neoplasm of cervix uteri, unspecified; Z85.818 Personal history of malignant neoplasm of other sites of lip, oral cavity, and pharynx; Z88.8 Allergy status to other drugs, medicaments and biological substances
CPT/HCPCS: 99282

== ENCOUNTER 2020-07-04 01:02 | Emergency (ER) | payer MEDICAID ==
[~2020-07-04] VITALS: Ht 157.5 cm; Wt 59.0 kg
[~2020-07-04 01:02] MED LIST changes: +AMOXICILLIN500 MG ORAL; +CLARITIN10 MG ORAL
--- NOTE | 2020-07-04 01:27 | NUR ---
ED Nurse Note: Pt walked in from home d/t urinary urgency and burning upon urination started today. patient aao x 4 and ambulatory with steady gait. patient reports hx of cervical cancer and hysterectomy. c/o aching pain 07/19. patient stable upon assessment.
[2020-07-04 01:28] VITALS: BP 143/86
[2020-07-04] MEDS ORDERED: Phenazopyridine 200mg tab ORAL ONE (01:30)
--- NOTE | 2020-07-04 01:33 | Emergency Room Report ---
History of Present Illness General Chief Complaint: Female Urogenital Problems Source: Patient Present Illness HPI Patient is a 39-year-old female past medical history of metastatic cervical cancer with mets to the spine who presents to the ER complaining of urinary frequency, dysuria and urgency. Patient states that she feeling she has to constantly urinate and has little output each time. She denies any fever or chills. She denies any nausea or vomiting. She denies any abdominal pain. She denies any hematuria. 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 COVID-19 Screening: Negative COVID-19 COVID-19 Testing Source: [facility] Patient History Last Menstrual Period: March 2017 Now: No : 2 Para: 2 Reviewed Nursing Documentation: PMH: Agreed; PSxH: Agreed Nursing Documentation-PMH Hx Cardiac Problems: Yes - cervical cancer Hx Cancer: Yes - cervical, throat Review of Systems All Other Systems: negative except mentioned in HPI Physical Exam Vital Signs Date Time Temp Pulse Resp B/P (MAP) Pulse Ox O2 Delivery O2 Flow Rate FiO2 07/04/20 01:14 97.3 88 20 143/86 (105) 98 Room Air Sp02 EP Interpretation: reviewed, normal General Appearance: alert, GCS 15, non-toxic, mild distress - Appears uncomfortable wants to go to the bathroom Head: normocephalic, atraumatic Eyes: bilateral eye normal inspection, bilateral eye PERRL ENT: hearing grossly normal, normal pharynx, no angioedema, normal voice Neck: full range of motion, supple/symm/no masses Respiratory: chest non-tender, lungs clear, normal breath sounds, speaking full sentences Cardiovascular #1: regular rate, rhythm, no edema Gastrointestinal: non tender, soft, no guarding, no rebound Rectal: deferred Genitourinary: no CVA tenderness Musculoskeletal: normal range of motion Neurologic: radio communications mechanician III-XII nml as tested, oriented x3 Psychiatric: no suicidal/homicidal ideation Skin: no rash Lymphatic: no adenopathy Medical Decision Making Diagnostic Impression: Primary Impression: Urinary tract infection ER Course Patient's vital signs are stable. Patient has no abdominal pain. Patient given Pyridium for symptomatic relief. Patient found to have UTI. Urine sent for culture. Patient started on Macrobid. After discussing risks and benefits of further diagnostics, treatment plans, as well as indications for and risks of admission, the patient is agreeable to being discharged home. I have explained that their evaluation and treatment in the emergency department today is an important step towards them achieving better health but that their evaluation today is not intended to replace further evaluation and treatment by a physician in their local clinic. I have explained that while the current findings suggest no immediate life threatening emergency they will require further evaluation and treatment by a physician of their choice in their area. They understand that it will be necessary for them to review the final reports of their ED visit with their clinic physician. We have reviewed indications for return to the Emergency Department. I have explained that additional time may need to pass and/or additional testing as an outpatient may be necessary before a definitive diagnosis can be made. They tell me they are willing to follow up as instructed within the timeframe I recommend. They appear to understand what we discussed. Additionally they understand that if they are unable to be seen by an outpatient physician they are welcome, and in fact should, return to the Emergency Department for a repeat evaluation. The patient is stable at time of discharge. Laboratory Tests Test 07/04/20 01:26 Urine Color Pale yellow Urine Appearance Cloudy Urine pH 5.0 (4.5-8.0) Urine Specific Wever 1.015 (1.005-1.035) Urine Protein 3+ (NEGATIVE) H Urine Glucose (UA) Negative (NEGATIVE) Urine Ketones Negative (NEGATIVE) Urine Blood 4+ (NEGATIVE) H Urine Nitrite Positive (NEGATIVE) H Urine Bilirubin Negative (NEGATIVE) Urine Urobilinogen Normal MG/DL (0.0-1.0) Urine Leukocyte Esterase 3+ (NEGATIVE) H Urine RBC Tntc /HPF (0 - 2) H Urine WBC Tntc /HPF (0 - 2) H Urine Squamous Epithelial Cells Few /LPF (NONE/OCC) Urine Bacteria Many /HPF (NONE) H Urine Mucus Moderate /LPF (NONE/OCC) H Urine HCG, Qualitative Negative (NEGATIVE) Last Vital Signs Date Time Temp Pulse Resp B/P (MAP) Pulse Ox O2 Delivery O2 Flow Rate FiO2 07/04/20 01:14 97.3 88 20 143/86 (105) 98 Room Air Disposition: HOME, SELF-CARE Condition: Stable Scripts Phenazopyridine Hcl* (PYRIDIUM*) 100 Mg Tablet 100 MG ORAL THREE TIMES A DAY, #14 TAB Prov: Rosalinda Willson M.D. 07/04/20 Nitrofurantoin Monohyd/M-Cryst* (MACROBID 100 MG*) 100 Mg Capsule 100 MG ORAL EVERY 12 HOURS for 7 Days, #14 CAP Prov: Rosalinda Willson M.D. 07/04/20 Referrals: NON PHYSICIAN (PCP) Additional Instructions: The patient was provided with discharge instructions, notified to follow-up with a primary care doctor and or specialist in the next 24-48 hours, and to return to the ED if they have worsening of their symptoms. Please note that this report is being documented using [employer] technology. This can lead to erroneous entry secondary to incorrect interpretation by the dictating instrument. Rosalinda Willson M.D. Jul 04, 2020 01:33
[2020-07-04 02:38] LABS: APPEARANCE,URINE CLOUDY; COLOR,URINE PALE YELLOW
[2020-07-04 02:39] LABS: BILIRUBIN, URINE NEGATIVE (NEGATIVE); GLUCOSE, URINE (UA) NEGATIVE (NEGATIVE); KETONES,URINE NEGATIVE (NEGATIVE); PROTEIN,URINE 3+ (NEGATIVE)
[2020-07-04 02:40] LABS: LEUKOCYTE ESTERASE ,URINE 3+ (NEGATIVE); NITRITE,URINE POSITIVE (NEGATIVE); UROBILINOGEN,URINE NORMAL MG/DL (0.0-1.0)
[2020-07-04] MEDS ORDERED: PHENAZOPYRIDIN100 MG ORAL (02:43)
[2020-07-04] MEDS ORDERED: NITROFURANTOIN100 M2 ORAL (02:43)
[2020-07-04 02:50] VITALS: BP 130/85
--- NOTE | 2020-07-04 02:50 | NUR ---
ER DISCHARGE NOTE: Patient is cleared to be discharged per ERMD, pt is aox4, on room air, with stable vital signs. pt was given dc and prescription instructions, pt was able to verbalize understanding, pt id band removed. pt is able to ambulate with steady gait. pt took all belongings.
== END 2020-07-04 02:50 | disposition home or self-care (01) ==
LOC: EMR 01:21
DX: N39.0 Urinary tract infection, site not specified (principal); Z88.8 Allergy status to other drugs, medicaments and biological substances; Z85.41 Personal history of malignant neoplasm of cervix uteri; Z85.89 Personal history of malignant neoplasm of other organs and systems
CPT/HCPCS: 81003; 81025; 87086; 87181; Z7502; 99283

== ENCOUNTER 2020-08-13 18:48 | Emergency (ER) | payer MEDICAID ==
[~2020-08-13] VITALS: Ht 152.4 cm; Wt 59.9 kg
[~2020-08-13 18:48] MED LIST changes: +NITROFURANTOIN100 M2 ORAL; +PHENAZOPYRIDIN100 MG ORAL
[2020-08-13 19:48] LABS: APPEARANCE,URINE CLOUDY; BILIRUBIN, URINE NEGATIVE (NEGATIVE); COLOR,URINE PALE YELLOW; GLUCOSE, URINE (UA) NEGATIVE (NEGATIVE); KETONES,URINE NEGATIVE (NEGATIVE); LEUKOCYTE ESTERASE ,URINE 3+ (NEGATIVE); NITRITE,URINE NEGATIVE (NEGATIVE); PH,URINE 7 (4.5-8.0); PROTEIN,URINE 4+ (NEGATIVE); UROBILINOGEN,URINE 1 MG/DL (0.0-1.0)
--- NOTE | 2020-08-13 19:52 | Emergency Room Report ---
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 Denies any hematuria, nausea vomiting however complains of chills. Has not taken medication for symptom relief. Temperature is within normal limits. Denies diffuse abdominal pain, nausea vomiting diarrhea. Denies cough or congestion, shortness of breath, h eadache or dizziness. Denies being sexually active. Denies any vaginal discharge. Denies . Allergies: Coded Allergies: VANCOMYCIN (Verified Allergy, Unknown, Itchiness, 05/14/19) COVID-19 Screening Contact w/high risk pt: No Experienced COVID-19 symptoms?: No COVID-19 Testing performed HANDLE ASSEMBLER: No Patient History Past Medical History: see triage record Past Surgical History: none Pertinent Family History: none Last Menstrual Period: hysteryctomy 2016 Now: No Immunizations: UTD Reviewed Nursing Documentation: PMH: Agreed; PSxH: Agreed Nursing Documentation-PMH Past Medical History: No History, Except For Hx Cardiac Problems: Yes - cervical cancer, hysterectomy Hx Cancer: Yes - cervical, throat Review of Systems All Other Systems: negative except mentioned in HPI Physical Exam Vital Signs Date Time Temp Pulse Resp B/P (MAP) Pulse Ox O2 Delivery O2 Flow Rate FiO2 08/13/20 19:01 97.5 109 18 119/84 (96) 95 Room Air Sp02 EP Interpretation: reviewed, normal General Appearance: no apparent distress, alert, GCS 15, non-toxic Head: normocephalic, atraumatic Eyes: bilateral eye normal inspection, bilateral eye PERRL ENT: hearing grossly normal, normal pharynx, no angioedema, normal voice Neck: full range of motion, supple/symm/no masses Respiratory: chest non-tender, lungs clear, normal breath sounds, speaking full sentences Cardiovascular #1: regular rate, rhythm, no edema Gastrointestinal: normal bowel sounds, non tender, soft, non-distended, no guarding, no rebound Rectal: deferred Genitourinary: no CVA tenderness Musculoskeletal: back normal Neurologic: alert, motor strength/tone normal, oriented x3, sensory intact, responsive, speech normal Psychiatric: judgement/insight normal, memory normal, mood/affect normal, no suicidal/homicidal ideation Skin: no rash Lymphatic: no adenopathy Medical Decision Making PA Attestation Diagnosis and treatment plans were reviewed and discussed with my supervising physician Dr. 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 Denies any hematuria, nausea vomiting however complains of chills. Has not taken medication for symptom relief. Temperature is within normal limits. Denies diffuse abdominal pain, nausea vomiting diarrhea. Denies cough or congestion, shortness of breath, headache or dizziness. Denies being sexually active. Denies any vaginal discharge. Denies . Ddx considered but are not limited to: UTI, pyelonephritis, urinary incontinence, prolapsed bladder, vaginitis, STD Patient has established oncologist and up-to-date with her visits with her oncologist Vital signs: are WNL, pt. is afebrile H&PE are most consistent with: UTI ORDERS: UA, urine cx, urine test, Keflex, Pyridium ED INTERVENTIONS: Rocephin, Pyridium DISCHARGE: At this time pt. is stable for d/c to home. Will provide printed patient care instructions, and any necessary prescriptions. Care plan and follow up instructions have been discussed with the patient prior to discharge. Take medication as directed, increase oral hydration, follow primary care provider and your oncologist, worsening symptoms return to emergency room Last Vital Signs Date Time Temp Pulse Resp B/P (MAP) Pulse Ox O2 Delivery O2 Flow Rate FiO2 08/13/20 19:01 97.5 109 18 119/84 (96) 95 Room Air Disposition: HOME, SELF-CARE Condition: Stable Scripts Phenazopyridine Hcl* (PYRIDIUM*) 200 Mg Tablet 200 MG ORAL THREE TIMES A DAY for 2 Days, #6 TAB 0 Refills Prov: Jorge Luis Story 08/13/20 Cephalexin* (KEFLEX*) 500 Mg Capsule 500 MG ORAL EVERY 12 HOURS for 7 Days, #14 CAP 0 Refills Prov: Jorge Luis Story 08/13/20 Patient Instructions: Urinary Tract Infection Additional Instructions: Take medication as directed, follow primary care provider, increase oral hydration, worsening symptoms return to the emergency room Jorge Luis Story Aug 13, 2020 19:52
[2020-08-13] MEDS ORDERED: CEPHALEXIN500 MG ORAL (19:53)
[2020-08-13] MEDS ORDERED: PHENAZOPYRIDIN200 MG ORAL (19:54)
[2020-08-13 19:55] VITALS: BP 119/84
--- NOTE | 2020-08-13 19:55 | NUR ---
ED Nurse Note: Patient walked into ED from home for c/o dysuria and lower abdominal pain onset one day. Patient is aaox4, breathing is normal and unlabored. No vaginal bleeding or vaginal dishcarge noted.
[2020-08-13] MEDS ORDERED: Phenazopyridine 200mg tab ORAL ONE (20:00)
[2020-08-13] MEDS ORDERED: Lidocaine 1% MPF 10mg/ml 5ml INJ ONE (20:00)
[2020-08-13 20:20] VITALS: BP 120/85
== END 2020-08-13 20:20 | disposition home or self-care (01) ==
LOC: EMR 20:20
DX: N39.0 Urinary tract infection, site not specified (principal); Z85.41 Personal history of malignant neoplasm of cervix uteri; Z90.710 Acquired absence of both cervix and uterus; Z85.818 Personal history of malignant neoplasm of other sites of lip, oral cavity, and pharynx; Z88.8 Allergy status to other drugs, medicaments and biological substances
CPT/HCPCS: 81003; 81025; 87086; 87181; 96372; 96374; J0696; Z7502; 99284

== ENCOUNTER 2020-09-07 07:26 | Emergency (ER) | payer MEDICAID ==
[~2020-09-07] VITALS: Ht 157.5 cm; Wt 59.0 kg
[~2020-09-07 07:26] MED LIST changes: +CEPHALEXIN500 MG ORAL; +PHENAZOPYRIDIN200 MG ORAL
[2020-09-07] MEDS ORDERED: NITROFURANTOIN100 M2 ORAL (07:39)
[2020-09-07 07:50] VITALS: BP 126/86
[2020-09-07 07:51] LABS: APPEARANCE,URINE SLIGHTLY CLOUDY; BILIRUBIN, URINE NEGATIVE (NEGATIVE); GLUCOSE, URINE (UA) NEGATIVE (NEGATIVE); KETONES,URINE 1+ (NEGATIVE); LEUKOCYTE ESTERASE ,URINE 3+ (NEGATIVE); NITRITE,URINE NEGATIVE (NEGATIVE); PH,URINE 6 (4.5-8.0); PROTEIN,URINE 3+ (NEGATIVE); UROBILINOGEN,URINE NORMAL MG/DL (0.0-1.0)
--- NOTE | 2020-09-07 07:56 | Emergency Room Report ---
History of Present Illness General Chief Complaint: Female Urogenital Problems Source: Patient Present Illness HPI 39-year-old female with history of cervical cancer status post hysterectomy and currently on radiation treatments and Avastin here with dysuria. Patient says that she had a urinary tract infection that was diagnosed 3 days ago. She was given a prescription for Macrobid and says that she has only taken a few doses due to intermittent nausea. Says "I do not know if it is the cancer treatments or the antibiotics." Denies fevers, chills, chest pain, palpitation, shortness of breath, cough, back pain, abdominal pain, vomiting, diarrhea, dysuria. Has not taken any antiemetics for her symptoms. 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 COVID-19 Screening: Negative COVID-19 COVID-19 Testing Source: vasal Patient History Now: No Nursing Documentation-[facility] Past Medical History: No History, Except For Hx Cardiac Problems: Yes - cervical cancer, hysterectomy Hx Cancer: Yes - cervical, throat Review of Systems All Other Systems: negative except mentioned in HPI Physical Exam Sp02 EP Interpretation: reviewed, normal General Appearance: no apparent distress, alert, non-toxic Head: normocephalic, atraumatic Eyes: bilateral eye normal inspection, bilateral eye PERRL ENT: hearing grossly normal, normal pharynx, no angioedema, normal voice Neck: full range of motion, supple/symm/no masses Respiratory: chest non-tender, lungs clear, normal breath sounds, speaking full sentences Cardiovascular #1: regular rate, rhythm, no edema, other - Right upper chest port in place without any surrounding erythema or induration Cardiovascular #2: 2+ carotid (R), 2+ carotid (L), 2+ radial (R), 2+ radial (L), 2+ dorsalis pedis (R), 2+ dorsalis pedis (L) Gastrointestinal: normal bowel sounds, non tender, soft, non-distended, no guarding, no rebound Rectal: deferred Genitourinary: normal inspection, no CVA tenderness Musculoskeletal: back normal, normal range of motion, gait/station normal, non- tender Neurologic: alert, motor strength/tone normal, sensory intact, responsive, speech normal Psychiatric: judgement/insight normal, memory normal, mood/affect normal, no suicidal/homicidal ideation Lymphatic: no adenopathy Medical Decision Making Diagnostic Impression: Primary Impression: UTI (urinary tract infection) Additional Impression: Cancer of cervix ER Course 39-year-old female with history of cervical cancer undergoing radiation and Avastin treatments, here with dysuria. Patient was hemodynamically stable in the emergency department. She was afebrile. She had no CVA tenderness and no evidence of sepsis. She says that she has frequent urinary tract infections. She was here approximately 1 month ago with similar complaints. Review of urine cultures from that time reveal E. coli that is sensitive to Macrobid and cephalosporins. Patient says that she has been noncompliant with her Macrobid because of nausea. She was given a prescription for Zofran, Pyridium, Keflex. Was told to come back to the emergency department with any fevers, worsening symptoms, back pain, nausea, vomiting. She expressed understanding and was discharged. Laboratory Tests Test 09/07/20 07:40 Urine Color Yellow Urine Appearance Slightly cloudy Urine pH 6 (4.5-8.0) Urine Specific [place] 1.015 (1.005-1.035) Urine Protein 3+ (NEGATIVE) H Urine Glucose (UA) Negative (NEGATIVE) Urine Ketones 1+ (NEGATIVE) H Urine Blood 5+ (NEGATIVE) H Urine Nitrite Negative (NEGATIVE) Urine Bilirubin Negative (NEGATIVE) Urine Urobilinogen Normal MG/DL (0.0-1.0) Urine Leukocyte Esterase 3+ (NEGATIVE) H Urine RBC 15-20 /HPF (0 - 2) H Urine WBC Tntc /HPF (0 - 2) H Urine Squamous Epithelial Cells Few /LPF (NONE/OCC) Urine Bacteria Few /HPF (NONE) Urine HCG, Qualitative Negative (NEGATIVE) Scripts Cephalexin* (KEFLEX*) 500 Mg Capsule 500 MG ORAL EVERY 12 HOURS, #14 CAP 0 Refills Prov: David Esparza M.D. 09/07/20 Ondansetron Odt* (ZOFRAN ODT*) 8 Mg Tab.rapdis 8 MG ORAL Q6H PRN for Nausea & Vomiting, #12 TAB Prov: David Esparza M.D. 09/07/20 Phenazopyridine Hcl* (PYRIDIUM*) 100 Mg Tablet 100 MG ORAL THREE TIMES A DAY, #12 TAB Prov: David Esparza M.D. 09/07/20 David Esparza M.D. Sep 07, 2020 07:56
[2020-09-07] MEDS ORDERED: Phenazopyridine 200mg tab ORAL ONE (08:00)
[2020-09-07] MEDS ORDERED: PHENAZOPYRIDIN100 MG ORAL (08:01)
[2020-09-07] MEDS ORDERED: ZOFRAN ODT8 MG ORAL (08:01)
[2020-09-07] MEDS ORDERED: CEPHALEXIN500 MG ORAL (08:01)
[2020-09-07 08:03] LABS: COLOR,URINE YELLOW
[2020-09-07 08:25] VITALS: BP 128/68
== END 2020-09-07 08:25 | disposition home or self-care (01) ==
LOC: EMR 07:50
DX: N39.0 Urinary tract infection, site not specified (principal); C53.9 Malignant neoplasm of cervix uteri, unspecified; Z90.710 Acquired absence of both cervix and uterus; Z85.89 Personal history of malignant neoplasm of other organs and systems; R11.0 Nausea; B96.20 Unspecified Escherichia coli [E. coli] as the cause of diseases classified elsewhere; Z91.14 Patient's other noncompliance with medication regimen
CPT/HCPCS: 81003; 81025; 87086; Z7502; 99283

== ENCOUNTER 2020-09-24 17:47 | Emergency (ER) | payer MEDICAID ==
[~2020-09-24] VITALS: Ht 152.4 cm; Wt 58.5 kg
[~2020-09-24 17:47] MED LIST changes: +ZOFRAN ODT8 MG ORAL
--- NOTE | 2020-09-24 18:10 | NUR ---
ED Nurse Note: Patient walked in to ER c/o dizziness, blurry vision and numbness, ringing in your ear, stated "my speech got very slow, felt like about to have seizure about 90 min ago." Patient stopped taking seziure med, Keppra for the last 9 months, but she took Keppra before coming to ER. Patient also c/o burning pain in the chest; patient has central line to left chest for chemo; patient had it for 1 year. Patient AAO x4, VSS at this time, smkin is arm to touch, has even non labored breathing.
--- NOTE | 2020-09-24 18:15 | NUR ---
ED Nurse Note: IV line was established on left AC 22ga, blood and urine specimens collected sent to lab
[2020-09-24 18:37] VITALS: BP 108/61
[2020-09-24 18:45] LABS: BASOPHILS % (AUTO) 0.9 % (0.0-2.0); EOSINOPHILS % (AUTO) 1.5 % (0.0-3.0); HEMATOCRIT 37.9 % (37.0-47.0); HEMOGLOBIN 12.5 G/DL (12.0-16.0); LYMPHOCYTES % (AUTO) 26.3 % (20.0-45.0); MEAN CORPUSCULAR VOLUME 88 FL (80-99); MONOCYTES % (AUTO) 8.7 % (1.0-10.0); NEUTROPHILS % (AUTO) 62.6 % (45.0-75.0); PLATELET COUNT 249 K/UL (150-450); RED BLOOD COUNT 4.32 M/UL (4.20-5.40); RED CELL DISTRIBUTION WIDTH 13.3 % (11.6-14.8); WHITE BLOOD COUNT 6.3 K/UL (4.8-10.8)
[2020-09-24 18:56] LABS: APPEARANCE,URINE CLEAR; BILIRUBIN, URINE NEGATIVE (NEGATIVE); COLOR,URINE PALE YELLOW; GLUCOSE, URINE (UA) NEGATIVE (NEGATIVE); KETONES,URINE NEGATIVE (NEGATIVE); LEUKOCYTE ESTERASE ,URINE 1+ (NEGATIVE); NITRITE,URINE NEGATIVE (NEGATIVE); PH,URINE 7 (4.5-8.0); PROTEIN,URINE NEGATIVE (NEGATIVE); UROBILINOGEN,URINE NORMAL MG/DL (0.0-1.0)
[2020-09-24 18:59] LABS: CALCIUM 9.2 MG/DL (8.5-10.1); CREATININE 1.3 MG/DL (0.55-1.30); POTASSIUM 3.7 MMOL/L (3.5-5.1)
[2020-09-24 19:04] LABS: ALBUMIN 3.9 G/DL (3.4-5.0); BILIRUBIN,TOTAL 0.3 MG/DL (0.2-1.0)
--- NOTE | 2020-09-24 19:10 | Emergency Room Report ---
History of Present Illness General Chief Complaint: Dizziness Source: Patient Present Illness HPI 39-year-old female presents for evaluation. Brought in by family for possible seizure. Unclear whether patient had a seizure but patient states she felt like she had a seizure. [place] shaky and dizzy. History of seizures. 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 States her last brain scan few months ago was clear. Has not taken her Keppra in about 6 months because she did not like the way it felt. Took Keppra prior to arrival. States she has a headache, dull, 5 out of 10, nonradiating. Denies fevers or chills. No other aggravating relieving factors. 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 Patient History Past Medical History: seizures, other - cervical cancer Pertinent Family History: none Social History: Denies: smoking, alcohol use, drug use Last Menstrual Period: hystrectomy Now: No Immunizations: UTD Reviewed Nursing Documentation: PMH: Agreed; PSxH: Agreed Nursing Documentation-PMH Past Medical History: No History, Except For Hx Cardiac Problems: Yes - cervical cancer metastatic to leg, chest and brain, hysterectomy Hx Hypertension: No Hx Pacemaker: No Hx Asthma: No Hx COPD: No Hx Diabetes: No Hx Cancer: Yes - cervical Hx Gastrointestinal Problems: No Hx Dialysis: No History Of Psychiatric Problem: No Hx Neurological Problems: Yes Hx Cerebrovascular Accident: No Hx Seizures: Yes Review of Systems All Other Systems: negative except mentioned in HPI Physical Exam Vital Signs Date Time Temp Pulse Resp B/P (MAP) Pulse Ox O2 Delivery O2 Flow Rate FiO2 09/24/20 17:53 97.9 92 18 108/61 (77) 94 Room Air Sp02 EP Interpretation: reviewed, normal General Appearance: no apparent distress, alert, GCS 15, non-toxic Head: normocephalic, atraumatic Eyes: bilateral eye normal inspection, bilateral eye PERRL ENT: hearing grossly normal, normal pharynx, no angioedema, normal voice Neck: full range of motion, supple/symm/no masses Respiratory: chest non-tender, lungs clear, normal breath sounds, speaking full sentences Cardiovascular #1: regular rate, rhythm, no edema Cardiovascular #2: 2+ carotid (R), 2+ carotid (L), 2+ radial (R), 2+ radial (L), 2+ dorsalis pedis (R), 2+ dorsalis pedis (L) Gastrointestinal: normal bowel sounds, non tender, soft, non-distended, no guarding, no rebound Rectal: deferred Genitourinary: normal inspection, no CVA tenderness Musculoskeletal: back normal, normal range of motion, gait/station normal, non- tender Neurologic: alert, motor strength/tone normal, oriented x3, sensory intact, r esponsive, speech normal Psychiatric: judgement/insight normal, memory normal, mood/affect normal, no suicidal/homicidal ideation Reflexes: 3+ bicep (R), 3+ bicep (L), 3+ tricep (R), 3+ tricep (L), 3+ knee (R), 3+ knee (L) Lymphatic: no adenopathy Medical Decision Making Diagnostic Impression: Primary Impression: UTI (urinary tract infection) Qualified Codes: N39.0 - Urinary tract infection, site not specified Additional Impression: Dizziness ER Course Hospital Course 39-year-old female presents with dizziness, possible seizure. History of seizures Differential diagnosis includes- breakthrough seizure, alcohol abuse, noncompliance with medication Clinical course Patient placed on stretcher. Initial history and physical I ordered labs, IV fluids, EKG Labs-electrolytes okay, no leukocytosis, hemoglobin/hematocrit stable. UA +bacteria EKG - NSR no acute ischemic changes interpreted by me I discussed findings with patient. No seizure activity in ED. Given Rocephin in ED. States has been having frequent UTIs recently. I will provide urology referral. Safe for discharge with close outpatient follow-up Diagnosis - UTI, seizure disorder stable and discharged to home with Rx Keflex. Followup with PMD/urology. Return to ED if symptoms recur or worsen Laboratory Tests Test 09/24/20 18:27 White Blood Count 6.3 K/UL (4.8-10.8) Red Blood Count 4.32 M/UL (4.20-5.40) Hemoglobin 12.5 G/DL (12.0-16.0) Hematocrit 37.9 % (37.0-47.0) Mean Corpuscular Volume 88 FL (80-99) Mean Corpuscular Hemoglobin 28.9 PG (27.0-31.0) Mean Corpuscular Hemoglobin Concent 33.0 G/DL (32.0-36.0) Red Cell Distribution Width 13.3 % (11.6-14.8) Platelet Count 249 K/UL (150-450) Mean Platelet Volume 6.6 FL (6.5-10.1) Neutrophils (%) (Auto) 62.6 % (45.0-75.0) Lymphocytes (%) (Auto) 26.3 % (20.0-45.0) Monocytes (%) (Auto) 8.7 % (1.0-10.0) Eosinophils (%) (Auto) 1.5 % (0.0-3.0) Basophils (%) (Auto) 0.9 % (0.0-2.0) Urine Color Pale yellow Urine Appearance Clear Urine pH 7 (4.5-8.0) Urine Specific [place] 1.005 (1.005-1.035) Urine Protein Negative (NEGATIVE) Urine Glucose (UA) Negative (NEGATIVE) Urine Ketones Negative (NEGATIVE) Urine Blood Negative (NEGATIVE) Urine Nitrite Negative (NEGATIVE) Urine Bilirubin Negative (NEGATIVE) Urine Urobilinogen Normal MG/DL (0.0-1.0) Urine Leukocyte Esterase 1+ (NEGATIVE) H Urine RBC 5-10 /HPF (0 - 2) H Urine WBC 20-30 /HPF (0 - 2) H Urine Squamous Epithelial Cells Many /LPF (NONE/OCC) H Urine Bacteria Moderate /HPF (NONE) H Urine HCG, Qualitative Negative (NEGATIVE) Sodium Level 136 MMOL/L (136-145) Potassium Level 3.7 MMOL/L (3.5-5.1) Chloride Level 99 MMOL/L (98-107) Carbon Dioxide Level 31 MMOL/L (21-32) Anion Gap 6 mmol/L (5-15) Blood Urea Nitrogen 18 mg/dL (7-18) Creatinine 1.3 MG/DL (0.55-1.30) Estimat Glomerular Filtration Rate 45.6 mL/min (>60) Glucose Level 92 MG/DL (74-106) Calcium Level 9.2 MG/DL (8.5-10.1) Total Bilirubin 0.3 MG/DL (0.2-1.0) Aspartate Amino Transf (AST/SGOT) 14 U/L (15-37) L Alanine Aminotransferase (ALT/SGPT) 13 U/L (12-78) Alkaline Phosphatase 88 U/L (46-116) Total Protein 8.0 G/DL (6.4-8.2) Albumin 3.9 G/DL (3.4-5.0) Globulin 4.1 g/dL Albumin/Globulin Ratio 1.0 (1.0-2.7) EKG Diagnostic Results Troponin ordered: No Rate: normal Rhythm: NSR ST Segments: no acute changes ASA given to the pt in ED: No Rhythm Strip Diag. Results EP Interpretation: yes Rhythm: NSR, no PVC's, no ectopy Last Vital Signs Date Time Temp Pulse Resp B/P (MAP) Pulse Ox O2 Delivery O2 Flow Rate FiO2 09/24/20 18:37 97.9 78 18 108/61 94 Room Air Status: improved Disposition: HOME, SELF-CARE Condition: Stable Scripts Cephalexin* (KEFLEX*) 500 Mg Capsule 500 MG ORAL EVERY 6 HOURS, #28 CAP Prov: Dallas Bates MD 09/24/20 Dallas Bates MD Sep 24, 2020 19:10
[2020-09-24] MEDS ORDERED: Acetaminophen 500mg (ES) tab ORAL ONE (19:15)
[2020-09-24] MEDS ORDERED: cefTRIAXone 1 GM in NS 55 ML IVPB ONE (19:30)
[2020-09-24] MEDS ORDERED: CEPHALEXIN500 MG ORAL (19:58)
[2020-09-24 20:05] VITALS: BP 111/67
--- NOTE | 2020-09-24 20:05 | NUR ---
ER DISCHARGE NOTE: Patient is cleared to be discharged per ERMD, pt is aox4, on room air, with stable vital signs. pt was given dc and prescription instructions, pt was able to verbalize understanding, pt id band and iv site removed without complications. pt is able to ambulate with steady gait. pt took all belongings.
--- NOTE | 2020-09-25 15:54 | Cardiology Report ---
APPROVED REPORT EKG Measurement Heart [id number] <Conclusion> Normal sinus rhythm Normal ECG
== END 2020-09-24 20:05 | disposition home or self-care (01) ==
LOC: EMR 18:30
DX: N39.0 Urinary tract infection, site not specified (principal); R42 Dizziness and giddiness; G40.909 Epilepsy, unspecified, not intractable, without status epilepticus; Z85.41 Personal history of malignant neoplasm of cervix uteri; Z90.710 Acquired absence of both cervix and uterus
CPT/HCPCS: 36415; 80053; 81003; 81025; 85025; 87086; 93005; 96361; 96365; J0696; J7030; Z7502; 99284

== ENCOUNTER 2020-10-03 11:47 | Emergency (ER) | payer MEDICAID ==
[~2020-10-03] VITALS: Ht 152.4 cm; Wt 58.5 kg
[2020-10-03 12:30] VITALS: BP 122/79
[2020-10-03] MEDS ORDERED: Lidocaine 1% MPF 10mg/ml 5ml INJ ONE (12:30)
--- NOTE | 2020-10-03 12:30 | NUR ---
ED Nurse Note: Pt walked in from home c/o chills, burning sensation with urination. Denies back pain. Pt was recently treated for UTI about a week ago, but stopped taking meds d/t PICC line replacement. Pt started the therapy again today. Pt on chemo @ home. Respirations even and unlabored on room air. vitals stable as documented. A+Ox4, speaking in complete sentences.
[2020-10-03 12:37] LABS: APPEARANCE,URINE SLIGHTLY CLOUDY; BILIRUBIN, URINE 2+ (NEGATIVE); GLUCOSE, URINE (UA) NEGATIVE (NEGATIVE); KETONES,URINE NEGATIVE (NEGATIVE); LEUKOCYTE ESTERASE ,URINE 1+ (NEGATIVE); PH,URINE 5 (4.5-8.0); PROTEIN,URINE 2+ (NEGATIVE); UROBILINOGEN,URINE 8 MG/DL (0.0-1.0)
[2020-10-03 12:39] LABS: COLOR,URINE ORANGE; NITRITE,URINE NEGATIVE (NEGATIVE)
--- NOTE | 2020-10-03 12:40 | NUR ---
ED Nurse Note: Report given to NITHYA Gilbert. Urine sample collected and sent.
--- NOTE | 2020-10-03 13:04 | Emergency Room Report ---
History of Present Illness General Chief Complaint: Female Urogenital Problems Source: Medical Record Present Illness HPI 39-year-old female with history of recurrences of UTI here complaining of dysuria urinary frequency. Patient was here in September 24, 2020 was given a prescription for Keflex and reported she only took it for 2 days and she had to go have a PICC line placed as it was clogged and restarted taking her medication 2 days ago. Patient has been taking [id number] Azo with minimal relief. Complains of chills however is afebrile. Denies nausea vomiting, diffuse abdominal pain. Has a pending referral to urologist. Denies . 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 Patient History Past Medical History: see triage record Past Surgical History: none Pertinent Family History: none Last Menstrual Period: hystrectomy Now: No Immunizations: UTD Reviewed Nursing Documentation: PMH: Agreed; PSxH: Agreed Nursing Documentation-PMH Past Medical History: No History, Except For Hx Cardiac Problems: Yes - cervical cancer metastatic to leg, chest and brain, hysterectomy Hx Hypertension: No Hx Pacemaker: No Hx Asthma: No Hx COPD: No Hx Diabetes: No Hx Cancer: Yes - cervical Hx Gastrointestinal Problems: No Hx Dialysis: No Hx Neurological Problems: Yes Hx Cerebrovascular Accident: No Hx Seizures: Yes Review of Systems All Other Systems: negative except mentioned in HPI Physical Exam Vital Signs Date Time Temp Pulse Resp B/P (MAP) Pulse Ox O2 Delivery O2 Flow Rate FiO2 10/03/20 12:09 97.3 95 16 117/83 (94) 96 Room Air Sp02 EP Interpretation: reviewed, normal General Appearance: no apparent distress, alert, GCS 15, non-toxic Head: normocephalic, atraumatic Eyes: bilateral eye normal inspection, bilateral eye PERRL ENT: hearing grossly normal, normal pharynx, no angioedema, normal voice Neck: full range of motion, supple/symm/no masses Respiratory: chest non-tender, lungs clear, normal breath sounds, speaking full sentences Cardiovascular #1: regular rate, rhythm, no edema Gastrointestinal: normal bowel sounds, non tender, soft, non-distended, no gu arding, no rebound Genitourinary: no CVA tenderness Musculoskeletal: back normal Neurologic: alert, motor strength/tone normal, oriented x3, sensory intact, responsive, speech normal Psychiatric: judgement/insight normal, memory normal, mood/affect normal, no suicidal/homicidal ideation Skin: no rash Lymphatic: no adenopathy Medical Decision Making PA Attestation All my diagnosis and treatment plans were reviewed ad discussed with my supervising physician Dr. Bates Diagnostic Impression: Primary Impression: UTI (urinary tract infection) ER Course 39-year-old female with history of recurrences of UTI here complaining of dysuria urinary frequency. Patient was here in September 24, 2020 was given a prescription for Keflex and reported she only took it for 2 days and she had to go have a PICC line placed as it was clogged and restarted taking her medication 2 days ago. Patient has been taking [id number] Azo with minimal relief. Complains of chills however is afebrile. Denies nausea vomiting, diffuse abdominal pain. Has a pending referral to urologist. Denies . Ddx considered but are not limited to: UTI, pyelonephritis, urinary inconti nence, prolapsed bladder Vital signs: are WNL, pt. is afebrile H&PE are most consistent with: UTI ORDERS: UA, urine cx, Bactrim DS as patient reported Keflex is giving her headache, Pyridium ED INTERVENTIONS: Rocephin DISCHARGE: At this time pt. is stable for d/c to home. Will provide printed patient care instructions, and any necessary prescriptions. Care plan and follow up instructions have been discussed with the patient prior to discharge. Patient take medication as directed, follow primary care provider, follow with urologist, if worsening symptom return to the emergency room Last Vital Signs Date Time Temp Pulse Resp B/P (MAP) Pulse Ox O2 Delivery O2 Flow Rate FiO2 10/03/20 12:09 97.3 95 16 117/83 (94) 96 Room Air Disposition: HOME, SELF-CARE Condition: Stable Scripts Phenazopyridine Hcl* (PYRIDIUM*) 200 Mg Tablet 200 MG ORAL THREE TIMES A DAY for 2 Days, #6 TAB 0 Refills Prov: Jorge Luis Story 10/03/20 Trimethoprim/Sulfamethoxazole 160/800* (BACTRIM DS TABLET*) 1 Each Tablet 1 TAB ORAL TWICE A DAY for 7 Days, #14 TAB Prov: Jorge Luis Story 10/03/20 Patient Instructions: Urinary Tract Infection Additional Instructions: Take medication as directed, follow primary care provider, worsening symptoms return to the emergency room Jorge Luis Story Oct 03, 2020 13:04
[2020-10-03] MEDS ORDERED: PHENAZOPYRIDIN200 MG ORAL (13:05)
[2020-10-03] MEDS ORDERED: BACTRIM DS TAB1 EAC1 ORAL (13:05)
[2020-10-03 13:10] VITALS: BP 128/86
--- NOTE | 2020-10-03 13:10 | NUR ---
ER DISCHARGE NOTE: Patient is cleared to be discharged per ERMD, pt is aox4, on room air, with stable vital signs. pt was given dc and prescription instructions, pt was able to verbalize understanding, pt id band removed without complications. pt is able to ambulate with steady gait. pt took all belongings.
== END 2020-10-03 13:10 | disposition home or self-care (01) ==
LOC: EMR 12:25
DX: N39.0 Urinary tract infection, site not specified (principal); G40.909 Epilepsy, unspecified, not intractable, without status epilepticus; Z90.710 Acquired absence of both cervix and uterus; Z88.1 Allergy status to other antibiotic agents; Z85.41 Personal history of malignant neoplasm of cervix uteri; Z85.841 Personal history of malignant neoplasm of brain; Z85.89 Personal history of malignant neoplasm of other organs and systems
CPT/HCPCS: 81003; 81025; 87086; 96372; J0696; Z7502; 99283